=== PATIENT | female | born 1995 | race Caucasian/White ===

== ENCOUNTER 2025-07-03 11:27 | Emergency (ER) | payer MEDICAID, OTHER ==
[~2025-07-03] VITALS: Ht 149.9 cm; Wt 66.0 kg
[2025-07-03 11:34] VITALS: O2SAT 100
[2025-07-03 12:10] LABS: BASOPHILS % 0.5 % (0.0-2.0); EOSINOPHILS % 7.7 % (0.0-5.0); HEMATOCRIT. 37.2 % (36.0-48.0); HEMOGLOBIN. 12.4 g/dL (12.0-16.0); LYMPHOCYTES % 29.3 % (20.0-50.0); MEAN PLATELET VOLUME 8.1 fl (7.4-10.4); MONOCYTES % 5.4 % (2.0-8.0); NEUTROPHILS % 57.1 % (40.0-76.0); PLATELET 431 x1000/uL (130-400); RED BLOOD CELL COUNT 4.08 mill/uL (4.2-5.4); RED CELL DISTRIBUTION WIDTH 13.4 % (11.6-14.6)
[2025-07-03 12:28] LABS: CREATININE 0.6 mg/dL (0.6-1.0); UREA NITROGEN BLOOD 11 mg/dL (9-23)
[2025-07-03 12:29] LABS: ASPARTATE AMINOTRANSFERASE 18 IU/L (<34)
[2025-07-03 12:30] LABS: BILIRUBIN DIRECT < 0.1 mg/dL (<=3.0); BILIRUBIN TOTAL 0.3 mg/dL (0.1-1.0); PROTEIN TOTAL 7.4 g/dL (6.0-8.3)
[2025-07-03 12:47] LABS: HCG SCREEN POSITIVE
[2025-07-03 13:11] LABS: B-HCG QUANTITATIVE 7376 mIU/mL (<6)
[2025-07-03 14:04] VITALS: BP 105/71; PULSE 71; RESP 18; TEMP 36.8; O2SAT 99
== END 2025-07-03 14:08 | disposition home or self-care (01) ==
LOC: ER 11:27 → CANBEDREQ 14:07 → ER 14:08
DX: O20.0 Threatened abortion (principal); Z79.899 Other long term (current) drug therapy; Z3A.10 10 weeks gestation of pregnancy
CPT/HCPCS: 80076; 80048; 84703; 84702; 85025; 86850; 86900; 86901; 36415; 76801; 76817; 99284; Z7610; A4606